=== PATIENT | male | born 1990 | race Caucasian/White ===

== ENCOUNTER 2019-07-17 13:36 | Observation (INO) | payer OTHER ==
[2019-07-17 13:44] VITALS: BMI 21.7
--- NOTE | 2019-07-17 14:21 | PDOC ---
History of Present Illness - General Chief Complaint: Head/Neck problem Stated Complaint: VOMITING AND LT FACIAL NUMBNESS Time Seen by Provider: 07/17/19 13:53 - History of Present Illness Initial Comments: 07/17/19 14:29 Pt is a 28 y/o M with a PMH of seizure d/o as a child (last known seizure 9 years old) who presents to our Emergency Department due to 3-4 days of left sided facial pain/numbness as well as generalized weakness. Pt states that he has been suffering however from a left occipital headache for 2 weeks duration. Pt recently visited his Neurologist who recommended an MRI w/ and w/o contrast of his Brain and C-Spine. This was scheduled for July 26 however due to progressively worsening pain, pt came to our E.D. Endorses decreased appetite and poor oral intake as well. Also endorsing photophobia. Pt states he was recently at [facility] however signed out AMA and does not believe any tests were ordered. Past History - Past Medical History Allergies/Adverse Reactions: Allergies Allergy/AdvReac Type Severity Reaction Status Date / Time Penicillins Allergy Verified 07/17/19 13:38 CVA: No COPD: No - Psycho Social/Smoking Cessation Hx Smoking History: Current every day smoker Number of Cigarettes Smoked Daily: 2 Information on smoking cessation initiated: Yes Hx Alcohol Use: No Drug/Substance Use Hx: No Review of Systems - Review of Systems Able to Perform ROS?: Yes Constitutional: Yes: Chills, Loss of Appetite. No: Fever Respiratory: No: Cough, Shortness of Breath Cardiac (ROS): No: Chest Pain, Palpitations ABD/GI: Yes: Poor Appetite, Poor Fluid Intake. No: Abdominal Distended Musculoskeletal: Yes: Muscle Pain Neurological: Yes: Headache, Paresthesia, Weakness *Physical Exam - Vital Signs Last Vital Signs Temp Pulse Resp BP Pulse Ox 98.1 F 111 H 20 122/79 95 07/17/19 13:39 07/17/19 13:39 07/17/19 13:39 07/17/19 13:39 07/17/19 13:39 - Physical Exam Comments: 07/17/19 22:25 AAOx3 Moderate distress EOMI Sclera Clear, PERRL RRR S1S2 CTA b/l CN 2-12 intact. Motor strength 5/5 RUE, 4-5/5 LUE, 5/5 b/l lower extremities. SILT throughout. - Addis/yuliana. General Appearance: Yes: Mild Distress HEENT: positive: EOMI, Normal ENT Inspection, Symmetrical, Photophobia. negative: Pale Conjunctivae, Scleral Icterus (L), Tonsillar Exudate, Tonsillar Erythema, Nasal Congestion Neck: positive: Supple, Other. negative: Rigidity ED Treatment Course - LABORATORY CBC & Chemistry Diagram: 07/17/19 15:18 07/17/19 15:18 Medical Decision Making - Medical Decision Making 07/17/19 14:21 DDx includes but not limited to meningitis, migraine headache, Multiple sclerosis, cervical radiculopathy, trigeminal neuralgia, and Zoster virus. Will order CBC w/ diff, CMP, and Head CT. 07/17/19 14:24 Placed call out to patient's Neurologist-Dr Freeman 07/17/19 16:27 Covering Neurologist, Dr Godinez recommends MRI w and w/o contrast. Pt sent for Head CT in light of symptoms and inability to have MRI at this time 07/17/19 16:[address] negative for any acute intracranial pathology. MRI Brain w/ and w/o contrast ordered as well as C-Spine. 07/17/19 17:[address] call out to on-call Neurologist Dr Desir to assess whether to admit as MRI 07/17/19 17:31 Spoke with MRI national recruiter- Gonzalez. States unless MRI is STAT order (Stroke, Cord Compression etc.), does not qualify for STAT MRI. Awaiting Call back from Dr Desir. Plan to admit to Hospitalist service for MRI tomorrow and further neurological workup. 07/17/19 17:[address] Desir. Agree with decision to admit in light of patient's symptoms. Microblog placed out to Hospitalist for admission. Discharge - Discharge Information Problems reviewed: Yes Clinical Impression/Diagnosis: Facial paresthesia Condition: Improved - Admission Yes - Follow up/Referral - Patient Discharge Instructions - Post Discharge Activity
[2019-07-17] MEDS ORDERED: ACETAMINOPHEN 1000 MG/100 ML VIAL (NON FORMULARY) IVPB ONE (14:22)
--- NOTE | 2019-07-17 15:00 | PDOC ---
Attending Attestation - Resident Resident Name: Paul Vernon - ED Attending Attestation I have performed the following: I have examined & evaluated the patient, The case was reviewed & discussed with the resident, I agree w/resident's findings & plan, Exceptions are as noted - HPI HPI: 07/17/19 14:57 20-year-old male history of seizure disorder here today complaining of 2 weeks of a left occipital headache in addition having left-sided facial pain numbness and tingling. He has been describing some paresthesia or burning-like sensation over the lateral aspect of his left side posterior neck. Approximately 2 to 3 days ago started noticing some photophobia associated with his headache denies any fevers or chills no history of recent trauma he did see a neurologist for his symptoms who scheduled him for an outpatient MRI patient is unable to schedule that test until first week in July. Was seen at [facility] emergency room however states he left AMA no testing was ordered at that time per his recollection. No nausea no vomiting weakness is described as generalized no family history of MS how there is a family history of migraines in his mother. Patient states he has no history of previous similar headaches - Physicial Exam PE: 07/17/19 14:59 Awake alert no acute distress lungs are clear bilaterally heart is regular without murmurs rubs or gallops abdomen is soft nontender extremities are warm well perfused strength is 5 out of 5 right upper and right lower extremity. Mild weakness 4+ out of 5 on the left upper and lower extremity sensation is intact throughout. Cranial nerves II through XII are intact extraocular motions are intact. Negative Kernig's or Brudzinski sign skin is warm and dry no rash - Medical Decision Making 07/17/19 14:59 28-year-old male no past medical history here with 2 weeks of left-sided headache with associated paresthesia generalized weakness. Differential includes MS, mass lesion, atypical migraine lateral abnormality. Plan will treat with migraine medications such as Reglan Toradol IV fluids and some basic labs. CT head was ordered due to the asymmetry on his exam patient will ultimately still require an MRI of the neck and head
[2019-07-17] MEDS ORDERED: ACETAMINOPHEN INJECTION 100 ML IVPB ONE (15:22)
[2019-07-17] MEDS ORDERED: METOCLOPRAMIDE HCL INJECTION 10 MG/2 ML VIAL IVPUSH ONE (15:23)
[2019-07-17] MEDS ORDERED: FAMOTIDINE 20 MG/50 ML IVPB 20 MG/50 ML MG IVPB ONE ×2 (15:23→15:29)
[2019-07-17] MEDS ORDERED: MAG HYDROX/AL HYDROX/SIMETH 30 ML UNIT-DOSE CUP ONE (15:24)
[2019-07-17] MEDS ORDERED: MAG HYDROX/AL HYDROX/SIMETH 30 ML UNIT-DOSE CUP PO ONE (15:24)
[2019-07-17] MEDS ORDERED: SODIUM CHLORIDE 0.9% 1000 ML INFUS.BAG IV ONE (15:30)
[2019-07-17] MEDS ORDERED: METOCLOPRAMIDE HCL INJECTION 10 MG/2 ML VIAL ONE (15:30)
[2019-07-17 15:42] LABS: BASO % 0.3 % (0-2.0); EOS % 0.2 % (0-4.5); HEMATOCRIT 51.1 % (35.4-49); HEMOGLOBIN 17.2 GM/dL (11.7-16.9); LYMPH % 20.6 % (8-40); MCH 31.5 pg (25.7-33.7); MCHC 33.7 g/dl (32.0-35.9); MEAN CELL VOLUME 93.5 fl (80-96); MEAN PLT VOLUME 7.8 fl (7.5-11.1); MONO % 11.9 % (3.8-10.2); PLATELET COUNT 228 K/MM3 (134-434); RBC 5.47 M/mm3 (4.00-5.60); RDW 12.7 % (11.9-15.9); WHITE BLOOD COUNT 9.9 K/mm3 (4.0-10.0)
[2019-07-17 16:21] LABS: ALBUMIN 4.5 g/dl (3.4-5.0); BILIRUBIN,TOTAL 0.9 mg/dL (0.2-1); CALCIUM 9.6 mg/dL (8.5-10.1); CREATININE 1.3 mg/dL (0.55-1.3); POTASSIUM 3.6 mmol/L (3.5-5.1); TOT PROT 8.1 g/dl (6.4-8.2)
[2019-07-17] MEDS ORDERED: KETOROLAC TROMETHAMINE 30 MG/1 ML VIAL IVPUSH ONE (17:30)
[2019-07-17] MEDS ORDERED: KETOROLAC TROMETHAMINE 30 MG/1 ML VIAL ONE (17:46)
[2019-07-17] MEDS ORDERED: KETOROLAC TROMETHAMINE 15 MG/ML VIAL IVPUSH PRN (18:04)
[2019-07-17] MEDS ORDERED: ONDANSETRON 4 MG/2 ML VIAL IVPUSH PRN (18:04)
[2019-07-17] MEDS ORDERED: ACETAMINOPHEN 325 MG TABLET (FP) PO PRN (18:04)
--- NOTE | 2019-07-17 18:17 | HP ---
CHIEF COMPLAINT: PCP:Mayuri HISTORY OF PRESENT ILLNESS: Pt is a 28 y/o M with a PMH of seizure d/o as a child (last known seizure 9 years old) presented to ER with c/o 3-4 days of left sided facial pain/ numbness as well as generalized weakness. Pt states that he has been suffering however from a left occipital headache for 2 weeks duration. Pt recently visited his Neurologist who recommended an MRI w/ and w/o contrast of his Brain and C-Spine which is scheduled for July 26 however due to progressively worsening pain, pt came to our E.D. pt reports of being nauseous yesterday and vomited x1. no vomiting today, mother at bedside, brought [employer], which patient just ate, denies abdominal pain, fevers, diarrhea. pt also c/o photophobia. pt was recently at [facility] however signed out AMA and does not believe any tests were ordered. pt received toradol in ED, currently rates headache 01/28, ER course was notable for: (1)CT head no acute findings (2)EKG NSR (3) Recent Travel: PAST MEDICAL HISTORY: febrile seizures PAST SURGICAL HISTORY:none Social History: Smoking:current smoker, 2-3 cigarettes/day Alcohol:denies Drugs: denies Allergies Penicillins Allergy (Verified 07/17/19 13:38) HOME MEDICATIONS: REVIEW OF SYSTEMS CONSTITUTIONAL: Absent: fever, chills, diaphoresis, generalized weakness, malaise, loss of appetite, weight change HEENT: Absent: rhinorrhea, nasal congestion, throat pain, throat swelling, difficulty swallowing, mouth swelling, ear pain, eye pain, visual changes CARDIOVASCULAR: Absent: chest pain, syncope, palpitations, irregular heart rate, lightheadedness , peripheral edema RESPIRATORY: Absent: cough, shortness of breath, dyspnea with exertion, orthopnea, wheezing, stridor, hemoptysis GASTROINTESTINAL:+Nausea, vomiting, Absent: abdominal pain, abdominal distension, diarrhea, constipation, melena, hematochezia GENITOURINARY: Absent: dysuria, frequency, urgency, hesitancy, hematuria, flank pain, genital pain MUSCULOSKELETAL: Absent: myalgia, arthralgia, joint swelling, back pain, neck pain SKIN: Absent: rash, itching, pallor HEMATOLOGIC/IMMUNOLOGIC: Absent: easy bleeding, easy bruising, lymphadenopathy, frequent infections ENDOCRINE: Absent: unexplained weight gain, unexplained weight loss, heat intolerance, cold intolerance NEUROLOGIC: left sided occipital headache, facial, numbness, +photophobia Absent: headache, focal weakness or paresthesias, dizziness, unsteady gait, seizure, mental status changes, bladder or bowel incontinence PSYCHIATRIC: Absent: anxiety, depression, suicidal or homicidal ideation, hallucinations. PHYSICAL EXAMINATION Vital Signs - 24 hr 07/17/19 13:39 Temperature 98.1 F Pulse Rate 111 H Respiratory 20 Rate Blood Pressure 122/79 O2 Sat by Pulse 95 Oximetry (%) GENERAL: Awake, alert, and fully oriented, in no acute distress. HEAD: Normal with no signs of trauma. EYES: Pupils equal, round and reactive to light, extraocular movements intact, sclera anicteric, conjunctiva clear. No lid lag. EARS, NOSE, THROAT: Ears normal, nares patent, oropharynx clear without exudates. Moist mucous membranes. NECK: Normal range of motion, supple without lymphadenopathy, JVD, or masses. LUNGS: Breath sounds equal, clear to auscultation bilaterally. No wheezes, and no crackles. No accessory muscle use. HEART: Regular rate and rhythm, normal S1 and S2 without murmur, rub or gallop. ABDOMEN: Soft, nontender, not distended, normoactive bowel sounds, no guarding, no rebound, no masses. No hepatomegaly or splenomegaly. MUSCULOSKELETAL: Normal range of motion at all joints. No bony deformities or tenderness. No CVA tenderness. UPPER EXTREMITIES: 2+ pulses, warm, well-perfused. No cyanosis. No clubbing. No peripheral edema. LOWER EXTREMITIES: 2+ pulses, warm, well-perfused. No calf tenderness. No peripheral edema. NEUROLOGICAL: Cranial nerves II-XII intact. Normal speech. Normal gait. PSYCHIATRIC: Cooperative. Good eye contact. Appropriate mood and affect. SKIN: Warm, dry, normal turgor, no rashes or lesions noted, normal capillary refill. Laboratory Results - last 24 hr 07/17/19 07/17/19 15:18 15:18 WBC 9.9 RBC 5.47 Hgb 17.2 H Hct 51.1 H MCV 93.5 MCH 31.5 MCHC 33.7 RDW 12.7 Plt Count 228 MPV 7.8 Absolute Neuts (auto) 6.6 Neutrophils % 67.0 Lymphocytes % 20.6 Monocytes % 11.9 H Eosinophils % 0.2 Basophils % 0.3 Nucleated RBC % 0 Sodium 136 Potassium 3.6 Chloride 93 L Carbon Dioxide 36 H Anion Gap 7 L BUN 22.0 H Creatinine 1.3 Est GFR (CKD-EPI)AfAm 86.06 Est GFR (CKD-EPI)NonAf 74.25 Random Glucose 97 Calcium 9.6 Total Bilirubin 0.9 AST 23 ALT 31 Alkaline Phosphatase 70 Total Protein 8.1 Albumin 4.5 ASSESSMENT/PLAN: Diogo Wu is a 28 yr old M, hx of febrile seizures as a child, no other significant medical condition admitted under observation for Admitting Diagnosis Left sided facial numbness/weakness, headache A/P: #Left sided facial numbness/weakness- r/o TIA vs Migraines - tele obs x 24 hrs -Neuro paged in ED- MRI brain w/contrast, MRI C-Spine in AM -will check lipid panel in AM -pain mgt, antiemetics -CT head unremarkable -EKG NSR FEN: Fluids- encourage hydration Electrolytes- replete PRN Nutrition- regular diet as tolerated DVT prophylaxis-pt is low risk, encourage ambulation Full Code Visit type - Emergency Visit Emergency Visit: Yes ED Registration Date: 07/17/19 Care time: The patient presented to the Emergency Department on the above date and was hospitalized for further evaluation of their emergent condition. - New Patient This patient is new to me today: Yes Date on this admission: 07/17/19 - Critical Care Critical Care patient: No
[2019-07-18 06:51] LABS: HEMATOCRIT 42.6 % (35.4-49); HEMOGLOBIN 14.3 GM/dL (11.7-16.9); MCH 31.7 pg (25.7-33.7); MCHC 33.7 g/dl (32.0-35.9); MEAN CELL VOLUME 93.9 fl (80-96); MEAN PLT VOLUME 8.1 fl (7.5-11.1); PLATELET COUNT 180 K/MM3 (134-434); RBC 4.53 M/mm3 (4.00-5.60); RDW 12.8 % (11.9-15.9); WHITE BLOOD COUNT 8.3 K/mm3 (4.0-10.0)
[2019-07-18 07:23] LABS: ALBUMIN 3.5 g/dl (3.4-5.0); BILIRUBIN,TOTAL 0.8 mg/dL (0.2-1); BLOOD UREA NITROGEN 20.9 mg/dL (7-18); CALCIUM 8.3 mg/dL (8.5-10.1); CREATININE 1.3 mg/dL (0.55-1.3); MAGNESIUM 2.2 mg/dL (1.8-2.4); POTASSIUM 3.4 mmol/L (3.5-5.1); TOT PROT 6.4 g/dl (6.4-8.2)
--- NOTE | 2019-07-18 08:37 | PN ---
Progress Note, Physician History of Present Illness: Pt is a 28 y/o M with a PMH of seizure d/o as a child (last known seizure 9 years old) presented to ER with c/o 3-4 days of left sided facial pain/ numbness as well as generalized weakness. Pt states that he has been suffering however from a left occipital headache for 2 weeks duration. Pt recently visited his Neurologist who recommended an MRI w/ and w/o contrast of his Brain and C-Spine which is scheduled for July 26 however due to progressively worsening pain, pt came to our E.D. pt reports of being nauseous yesterday and vomited x1. no vomiting today, mother at bedside, brought [employer], which patient just ate, denies abdominal pain, fevers, diarrhea. pt also c/o photophobia. pt was recently at [facility] however signed out AMA and does not believe any tests were ordered. pt received toradol in ED, currently rates headache 01/28, - Current Medication List Current Medications: Active Medications Acetaminophen (Tylenol -) 650 mg PO Q4H PRN PRN Reason: PAIN LEVEL 1-5 Ketorolac Tromethamine (Toradol Injection -) 15 mg IVPUSH Q6H PRN PRN Reason: PAIN LEVEL 6-10 Stop: 07/22/19 18:03 Ondansetron HCl (Zofran Injection) 4 mg IVPUSH Q6H PRN PRN Reason: NAUSEA - Objective Vital Signs: Vital Signs Temperature 97.5 F L 07/18/19 06:43 Pulse Rate 84 07/18/19 06:43 Respiratory Rate 0 L 07/18/19 06:43 Blood Pressure 135/81 07/18/19 06:43 O2 Sat by Pulse Oximetry (%) 100 07/17/19 21:00 Labs: CBC, BMP 07/18/19 06:13 07/18/19 06:13 Problem List - Problems (1) Seizure Code(s): R56.9 - UNSPECIFIED CONVULSIONS (2) Prophylactic measure Code(s): Z29.9 - ENCOUNTER FOR PROPHYLACTIC MEASURES, UNSPECIFIED (3) Left facial numbness Code(s): R20.0 - ANESTHESIA OF SKIN (4) Occipital headache Code(s): R51 - HEADACHE
[2019-07-18] MEDS ORDERED: POTASSIUM CHLORIDE TABS 20 MEQ TABLET.ER (FP) PO ONE (09:00)
--- NOTE | 2019-07-18 09:32 | CONSULT ---
Consult - text type - Consultation Consultation Note: Neurology CHIEF COMPLAINT: PCP:Mayuri HISTORY OF PRESENT ILLNESS: 28 y/o M with a PMH of seizure d/o as a child (last known seizure 9 years old) presented to ER with c/o 3-4 days of left sided facial pain/numbness as well as generalized weakness. Pt stated that he has been suffering however from a left occipital headache for 2 weeks duration. Pt recently visited his Neurologist who recommended an MRI w/ and w/o contrast of his Brain and C-Spine which is scheduled for July 26 however due to progressively worsening pain , pt came to E.D. and reported nauseousness and vomited x1. No abdominal pain, fevers, diarrhea. pt also c/o photophobia. pt was recently at [facility] however signed out AMA and does not believe any tests were ordered. CT head completed and no acute changes. ER resident concerned for L sided weakness though and therefore MRI brain and C spine ordered. Patient reports feeling better this AM and awaiting imaging. PAST MEDICAL HISTORY: febrile seizures PAST SURGICAL HISTORY:none Social History: Smoking:current smoker, 2-3 cigarettes/day Alcohol:denies Drugs: denies Allergies Penicillins Allergy (Verified 07/17/19 13:38) HOME MEDICATIONS: REVIEW OF SYSTEMS CONSTITUTIONAL: Absent: fever, chills, diaphoresis, generalized weakness, malaise, loss of appetite, weight change HEENT: Absent: rhinorrhea, nasal congestion, throat pain, throat swelling, difficulty swallowing, mouth swelling, ear pain, eye pain, visual changes CARDIOVASCULAR: Absent: chest pain, syncope, palpitations, irregular heart rate, lightheadedness , peripheral edema RESPIRATORY: Absent: cough, shortness of breath, dyspnea with exertion, orthopnea, wheezing, stridor, hemoptysis GASTROINTESTINAL:+Nausea, vomiting, Absent: abdominal pain, abdominal distension, diarrhea, constipation, melena, hematochezia GENITOURINARY: Absent: dysuria, frequency, urgency, hesitancy, hematuria, flank pain, genital pain MUSCULOSKELETAL: Absent: myalgia, arthralgia, joint swelling, back pain, neck pain SKIN: Absent: rash, itching, pallor HEMATOLOGIC/IMMUNOLOGIC: Absent: easy bleeding, easy bruising, lymphadenopathy, frequent infections ENDOCRINE: Absent: unexplained weight gain, unexplained weight loss, heat intolerance, cold intolerance NEUROLOGIC: left sided occipital headache, facial, numbness, +photophobia Absent: headache, focal weakness or paresthesias, dizziness, unsteady gait, seizure, mental status changes, bladder or bowel incontinence PSYCHIATRIC: Absent: anxiety, depression, suicidal or homicidal ideation, hallucinations. PHYSICAL EXAMINATION Vital Signs Period Temp Pulse Resp BP Sys/Renee Pulse Ox Last 24 Hr 97.5 F-98.4 F 67-111 0-20 97-135/52-81 95-100 GENERAL: Awake, alert, and fully oriented, in no acute distress. HEAD: Normal with no signs of trauma. EYES: Pupils equal, round and reactive to light, extraocular movements intact, sclera anicteric, conjunctiva clear. No lid lag. EARS, NOSE, THROAT: Ears normal, nares patent, oropharynx clear without exudates. Moist mucous membranes. NECK: Normal range of motion, supple without lymphadenopathy, JVD, or masses. LUNGS: Breath sounds equal, clear to auscultation bilaterally. No wheezes, and no crackles. No accessory muscle use. HEART: Regular rate and rhythm, normal S1 and S2 without murmur, rub or gallop. ABDOMEN: Soft, nontender, not distended, normoactive bowel sounds, no guarding, no rebound, no masses. No hepatomegaly or splenomegaly. MUSCULOSKELETAL: Normal range of motion at all joints. No bony deformities or tenderness. No CVA tenderness. UPPER EXTREMITIES: 2+ pulses, warm, well-perfused. No cyanosis. No clubbing. No peripheral edema. LOWER EXTREMITIES: 2+ pulses, warm, well-perfused. No calf tenderness. No peripheral edema. NEUROLOGICAL: Cranial nerves II-XII intact. Normal speech. Normal gait. PSYCHIATRIC: Cooperative. Good eye contact. Appropriate mood and affect. SKIN: Warm, dry, normal turgor, no rashes or lesions noted, normal capillary refill. Laboratory Results - last 24 hr 07/17/19 07/17/19 15:18 15:18 WBC 9.9 RBC 5.47 Hgb 17.2 H Hct 51.1 H MCV 93.5 MCH 31.5 MCHC 33.7 RDW 12.7 Plt Count 228 MPV 7.8 Absolute Neuts (auto) 6.6 Neutrophils % 67.0 Lymphocytes % 20.6 Monocytes % 11.9 H Eosinophils % 0.2 Basophils % 0.3 Nucleated RBC % 0 Sodium 136 Potassium 3.6 Chloride 93 L Carbon Dioxide 36 H Anion Gap 7 L BUN 22.0 H Creatinine 1.3 Est GFR (CKD-EPI)AfAm 86.06 Est GFR (CKD-EPI)NonAf 74.25 Random Glucose 97 Calcium 9.6 Total Bilirubin 0.9 AST 23 ALT 31 Alkaline Phosphatase 70 Total Protein 8.1 Albumin 4.5 ASSESSMENT/PLAN: 28 y/o M with a PMH of seizure d/o as a child (last known seizure 9 years old) presented to ER with c/o 3-4 days of left sided facial pain/numbness as well as generalized weakness. Pt stated that he has been suffering however from a left occipital headache for 2 weeks duration. Pt recently visited his Neurologist who recommended an MRI w/ and w/o contrast of his Brain and C-Spine which is scheduled for July 26 however due to progressively worsening pain , pt came to E.D. and reported nauseousness and vomited x1. No abdominal pain, fevers, diarrhea. pt also c/o photophobia. pt was recently at [facility] however signed out AMA and does not believe any tests were ordered. CT head completed and no acute changes. ER resident concerned for L sided weakness though and therefore MRI brain and C spine ordered. Patient reports feeling better this AM and awaiting imaging. Once completed will have better sense of underlying etiology. For now, continue medical optimization. Fluids, increased PO intake as able. DVT ppx.
--- NOTE | 2019-07-18 15:05 | DS ---
Physical Exam: SUBJECTIVE: Patient seen and examined Pt is a 28 y/o M with a PMH of seizure d/o as a child (last known seizure 9 years old) presented to ER with c/o 3-4 days of left sided facial pain/ numbness as well as generalized weakness. Pt states that he has been suffering however from a left occipital headache for 2 weeks duration. Pt recently visited his Neurologist who recommended an MRI w/ and w/o contrast of his Brain and C-Spine which is scheduled for July 26 however due to progressively worsening pain, pt came to our E.D. pt reports of being nauseous yesterday and vomited x1. no vomiting today, mother at bedside, brought [employer], which patient just ate, denies abdominal pain, fevers, diarrhea. pt also c/o photophobia. pt was recently at [facility] however signed out AMA and does not believe any tests were ordered. pt received toradol in ED, currently rates headache 01/28, OBJECTIVE: Vital Signs Period Temp Pulse Resp BP Sys/Renee Pulse Ox Last 24 Hr 97.5 F-98.5 F 60-98 0-20 97-145/52-81 100-100 PHYSICAL EXAM GENERAL: The patient is awake, alert, and fully oriented, in no acute distress. HEAD: Normal with no signs of trauma. EYES: PERRL, extraocular movements intact, sclera anicteric, conjunctiva clear. ENT: Ears normal, nares patent, oropharynx clear without exudates, moist mucous membranes. NECK: Trachea midline, full range of motion, supple. LUNGS: Breath sounds equal, clear to auscultation bilaterally, no wheezes, no crackles, no accessory muscle use. HEART: Regular rate and rhythm, S1, S2 without murmur, rub or gallop. ABDOMEN: Soft, nontender, nondistended, normoactive bowel sounds, no guarding, no rebound, no hepatosplenomegaly, no masses. EXTREMITIES: 2+ pulses, warm, well-perfused, no edema. NEUROLOGICAL: Cranial nerves II through XII grossly intact. Normal speech, gait not observed. PSYCH: Normal mood, normal affect. SKIN: Warm, dry, normal turgor, no rashes or lesions noted. LABS Laboratory Results - last 24 hr 07/17/19 07/17/19 07/18/19 15:18 15:18 06:13 WBC 9.9 8.3 RBC 5.47 4.53 Hgb 17.2 H 14.3 Hct 51.1 H 42.6 D MCV 93.5 93.9 MCH 31.5 31.7 MCHC 33.7 33.7 RDW 12.7 12.8 Plt Count 228 180 D MPV 7.8 8.1 Absolute Neuts (auto) 6.6 Neutrophils % 67.0 Lymphocytes % 20.6 Monocytes % 11.9 H Eosinophils % 0.2 Basophils % 0.3 Nucleated RBC % 0 Sodium 136 Potassium 3.6 Chloride 93 L Carbon Dioxide 36 H Anion Gap 7 L BUN 22.0 H Creatinine 1.3 Est GFR (CKD-EPI)AfAm 86.06 Est GFR (CKD-EPI)NonAf 74.25 Random Glucose 97 Calcium 9.6 Magnesium Total Bilirubin 0.9 AST 23 ALT 31 Alkaline Phosphatase 70 Total Protein 8.1 Albumin 4.5 07/18/19 06:13 WBC RBC Hgb Hct MCV MCH MCHC RDW Plt Count MPV Absolute Neuts (auto) Neutrophils % Lymphocytes % Monocytes % Eosinophils % Basophils % Nucleated RBC % Sodium 136 Potassium 3.4 L Chloride 98 Carbon Dioxide 32 Anion Gap 6 L BUN 20.9 H Creatinine 1.3 Est GFR (CKD-EPI)AfAm 86.06 Est GFR (CKD-EPI)NonAf 74.25 Random Glucose 123 H Calcium 8.3 L Magnesium 2.2 Total Bilirubin 0.8 AST 17 ALT 24 Alkaline Phosphatase 55 Total Protein 6.4 Albumin 3.5 HOSPITAL COURSE: Date of Admission:07/17/19 Date of Discharge: 07/18/19 Minutes to complete discharge: 45 Discharge Summary Problems reviewed: Yes Reason For Visit: PARESTHESIA AND PAIN OF LEFT EXTREMITY, FACIAL Current Active Problems Facial paresthesia (Acute) Left facial numbness (Acute) Occipital headache (Acute) Prophylactic measure (Acute) Seizure (Acute) Condition: Improved - Instructions Referrals: Sinai Messina MD [Primary Care Provider] - Problem List - Problems (1) Seizure Code(s): R56.9 - UNSPECIFIED CONVULSIONS (2) Prophylactic measure Code(s): Z29.9 - ENCOUNTER FOR PROPHYLACTIC MEASURES, UNSPECIFIED (3) Left facial numbness Code(s): R20.0 - ANESTHESIA OF SKIN (4) Occipital headache Code(s): R51 - HEADACHE
[2019-07-18 15:59] VITALS: BP 147/91; PULSE 67; TEMP 98.4
== END 2019-07-18 15:58 | disposition home or self-care (01) ==
LOC: JER 13:36 → JERBED 17:47 → J8W 20:57
PROVIDERS: ADMIT Internal Medicine; ATTEND Nurse Practitioner Acute Care
PROC: 3E033NZ Introduction of Analgesics, Hypnotics, Sedatives into Peripheral Vein, Percutaneous Approach (ICD-10-PCS; principal; 2019-07-17)
PROC: 3E0333Z Introduction of Anti-inflammatory into Peripheral Vein, Percutaneous Approach (ICD-10-PCS; 2019-07-17)
PROC: 3E0337Z Introduction of Electrolytic and Water Balance Substance into Peripheral Vein, Percutaneous Approach (ICD-10-PCS; 2019-07-17)
PROC: 3E033GC Introduction of Other Therapeutic Substance into Peripheral Vein, Percutaneous Approach (ICD-10-PCS; 2019-07-17)
DX: R20.2 Paresthesia of skin (principal); R20.0 Anesthesia of skin; R51 Headache; R53.1 Weakness; F17.210 Nicotine dependence, cigarettes, uncomplicated; Z88.0 Allergy status to penicillin; Z86.69 Personal history of other diseases of the nervous system and sense organs; Z29.8 Encounter for other specified prophylactic measures
CPT/HCPCS: 36415; 70450-TC; 70553-TC; 80053; 80061; 83721; 83735; 85025; 85027; 96365; 96375; 99284-25; A9579; C1887; G0378; J0131; J7030

== ENCOUNTER 2019-07-20 13:10 | Inpatient (IN) | payer OTHER ==
[2019-07-20 13:18] VITALS: BMI 21.9
[2019-07-20] MEDS ORDERED: SODIUM CHLORIDE 1,000 ML IV STA ×2 (14:01→15:09)
[2019-07-20] MEDS ORDERED: ONDANSETRON 4 MG/2 ML VIAL IVPUSH ONE (14:01)
[2019-07-20] MEDS ORDERED: FAMOTIDINE 20 MG/50 ML IVPB 20 MG/50 ML MG IVPB ONE ×2 (14:01→14:07)
[2019-07-20] MEDS ORDERED: ONDANSETRON 4 MG/2 ML VIAL ONE (14:07)
[2019-07-20 14:17] LABS: BASO % 0.8 % (0-2.0); EOS % 0.2 % (0-4.5); HEMOGLOBIN 16.8 GM/dL (11.7-16.9); LYMPH % 27.7 % (8-40); MCH 31.5 pg (25.7-33.7); MCHC 33.6 g/dl (32.0-35.9); MEAN CELL VOLUME 93.8 fl (80-96); MEAN PLT VOLUME 7.5 fl (7.5-11.1); MONO % 11.9 % (3.8-10.2); NEUT % 59.4 % (42.8-82.8); PLATELET COUNT 194 K/MM3 (134-434); RBC 5.33 M/mm3 (4.00-5.60); RDW 12.2 % (11.9-15.9); WHITE BLOOD COUNT 6.6 K/mm3 (4.0-10.0)
[2019-07-20 14:18] LABS: PH,URINE 5.5 (5.0-8.0); URINE APPEARANCE CLEAR; URINE BILIRUBIN NEGATIVE (NEGATIVE); URINE COLOR YELLOW; URINE GLUCOSE (UA) NEGATIVE (NEGATIVE); URINE KETONE TRACE (NEGATIVE); URINE LEUK ESTERASE NEGATIVE (NEGATIVE); URINE NITRITE NEGATIVE (NEGATIVE); URINE PROTEIN TRACE (NEGATIVE)
[2019-07-20 14:45] LABS: BILIRUBIN,TOTAL 0.9 mg/dL (0.2-1); BLOOD UREA NITROGEN 17.6 mg/dL (7-18); CALCIUM 9.3 mg/dL (8.5-10.1); CREATININE 1.2 mg/dL (0.55-1.3); POTASSIUM 4.1 mmol/L (3.5-5.1); TOT PROT 7.6 g/dl (6.4-8.2)
[2019-07-20 14:54] LABS: MAGNESIUM 2.2 mg/dL (1.8-2.4); PHOSPHOROUS 3.2 mg/dL (2.5-4.9)
--- NOTE | 2019-07-20 15:31 | PDOC ---
History of Present Illness - General Chief Complaint: Head/Neck problem Stated Complaint: NUMBNESS/WEAKNESS/VOMITING Time Seen by Provider: 07/20/19 13:23 History Source: Patient Exam Limitations: No Limitations - History of Present Illness Initial Comments: 07/20/19 15:26 28 yo m w/ a h/o seizures as a child comes in c/o intractable vomiting and epigastric abdominal pain for the past 3-4 days. Pain does not radiate to the back. no diarrhea. no urinary symptoms, no CP/SOB. No fever/chills. He was admitted in the hospital 4 days ago for numbness/tingling to the left side of the face, had a negative MRI head but has not gotten a chance to follow up yet. He was having vomiting in the hospital but tolerated PO his last day which is why he got discharged. When he got home, he ate a king sandwich and everything got worse. No known sick contacts, no recent travel. He took tylenol at home which did not help with pain Past History - Past Medical History Allergies/Adverse Reactions: Allergies Allergy/AdvReac Type Severity Reaction Status Date / Time Penicillins Allergy Verified 07/20/19 13:18 Home Medications: Ambulatory Orders NK [No Known Home Medication] 07/20/19 Anemia: No Asthma: No Cancer: No Cardiac Disorders: No CVA: No COPD: No CHF: No Dementia: No Diabetes: No GI Disorders: No Disorders: No HTN: No Hypercholesterolemia: No Liver Disease: No Seizures: No Thyroid Disease: No - Surgical History Abdominal Surgery: No Appendectomy: No Cardiac Surgery: No Cholecystectomy: No Lung Surgery: No Neurologic Surgery: No Orthopedic Surgery: No - Psycho Social/Smoking Cessation Hx Smoking History: Never smoked Have you smoked in the past 12 months: No Number of Cigarettes Smoked Daily: 2 Information on smoking cessation initiated: No 'Breaking Loose' booklet given: 06/23/18 Hx Alcohol Use: No Drug/Substance Use Hx: No Substance Use Type: None Review of Systems - Review of Systems Able to Perform ROS?: Yes Constitutional: Yes: Malaise. No: Chills, Fever, Night Sweats HEENTM: No: Eye Pain, Recent change in vision, Throat Pain Respiratory: No: Cough, Shortness of Breath Cardiac (ROS): No: Chest Pain, Palpitations, Chest Tightness ABD/GI: Yes: Nausea, Vomiting, Abdominal cramping. No: Diarrhea : No: Dysuria, Hematuria Musculoskeletal: No: Back Pain Integumentary: No: Rash Neurological: No: Dizziness Psychiatric: No: Change in Appetite Endocrine: No: Unexplained Weight Loss *Physical Exam - Vital Signs Last Vital Signs Temp Pulse Resp BP Pulse Ox 98.4 F 70 17 110/70 100 07/20/19 13:15 07/20/19 13:15 07/20/19 13:15 07/20/19 13:15 07/20/19 13:20 - Physical Exam General Appearance: Yes: Nourished. No: Apparent Distress HEENT: positive: DAE, Normal ENT Inspection, Normal Voice. negative: Pale Conjunctivae, Scleral Icterus (R), Scleral Icterus (L) Neck: positive: Supple. negative: Decreased range of motion, Tender midline Respiratory/Chest: positive: Lungs Clear, Normal Breath Sounds. negative: Respiratory Distress, Accessory Muscle Use Cardiovascular: positive: Regular Rhythm, Regular Rate Comments:: 07/20/19 15:36 Neuro exam : A+Ox3 (person, place, time), normal sensorium. Visual kowalski: full to confrontation. Pupils: equal, round, and reactive to light. EOM: intact and smooth pursuit. No nystagmus. Sensation: V1, V2, and V3 subjective sensory disturbances on the left side. Facial strength: muscles of mastication, facial expression, shoulder shrug, and head turn normal. Hearing: grossly intact b/l Mouth: tongue protrudes midline and moves Left/Right equal b/l. Uvula rises symmetrically. Motor: UE and LE 5/5 diffusely. Sensation: light touch and pinprick WNL in extremities Cerebellum: [id number] normal without dysmetria or intention tremor. [id number] wnl. No dysdiadodyskinesia. Gait: unassisted, steady, Romberg negative, and heel-walk normal. No atalgia, difficulty in ambulation or ataxia. Gastrointestinal/Abdominal: positive: Normal Bowel Sounds, Tender (epigastric area tenderness. (-)dallas's sign, no lower abdominal tenderness), Soft, Rebound (mild rebound in epigastric area) Musculoskeletal: positive: Normal Inspection. negative: CVA Tenderness, Decreased Range of Motion Extremity: positive: Normal Capillary Refill, Normal Inspection, Normal Range of Motion. negative: Tender, Pedal Edema Integumentary: positive: Normal Color, Dry. negative: Jaundice, Rash Neurologic: positive: Fully Oriented, Alert, Normal Mood/Affect ED Treatment Course - LABORATORY CBC & Chemistry Diagram: 07/20/19 13:55 07/20/19 13:55 - ADDITIONAL ORDERS Additional order review: Laboratory Results 07/20/19 07/20/19 07/20/19 14:00 13:55 13:55 Sodium Potassium Chloride Carbon Dioxide Anion Gap BUN Creatinine Est GFR (CKD-EPI)AfAm Est GFR (CKD-EPI)NonAf Random Glucose Calcium Phosphorus 3.2 Magnesium 2.2 Total Bilirubin AST ALT Alkaline Phosphatase Total Protein Albumin Lipase 1234 H Urine Color Yellow Urine Appearance Clear Urine pH 5.5 Ur Specific [place] 1.030 Urine Protein Trace Urine Glucose (UA) Negative Urine Ketones Trace H Urine Blood Negative Urine Nitrite Negative Urine Bilirubin Negative Urine Urobilinogen 1.0 Ur Leukocyte Esterase Negative 07/20/19 13:55 Sodium 138 Potassium 4.1 Chloride 100 Carbon Dioxide 34 H Anion Gap 4 L BUN 17.6 Creatinine 1.2 Est GFR (CKD-EPI)AfAm 94.80 Est GFR (CKD-EPI)NonAf 81.80 Random Glucose 92 Calcium 9.3 Phosphorus Magnesium Total Bilirubin 0.9 AST 23 ALT 31 Alkaline Phosphatase 63 Total Protein 7.6 Albumin 4.0 Lipase Urine Color Urine Appearance Urine pH Ur Specific [place] Urine Protein Urine Glucose (UA) Urine Ketones Urine Blood Urine Nitrite Urine Bilirubin Urine Urobilinogen Ur Leukocyte Esterase 07/20/19 13:55 RBC 5.33 MCV 93.8 MCHC 33.6 RDW 12.2 MPV 7.5 Neutrophils % 59.4 Lymphocytes % 27.7 D Monocytes % 11.9 H Eosinophils % 0.2 Basophils % 0.8 - Medications Given in the ED: ED Medications Discontinued Medications Generic Name Dose Route Start Last Admin Trade Name Freq PRN Reason Stop Dose Admin Famotidine/Sodium Chloride 20 mg in 50 mls @ 100 mls/hr 07/20/19 14:01 14:12 Pepcid 20 Mg Premixed Ivpb - IVPB 07/20/19 14:30 100 mls/hr ONCE ONE Administration Sodium Chloride 1,000 mls @ 1,000 mls/hr 07/20/19 14:01 07/20/19 14:10 Normal Saline - IV 07/20/19 15:00 1,000 mls/hr ASDIR STA Administration Ondansetron HCl 4 mg 07/20/19 14:01 07/20/19 14:10 Zofran Injection IVPUSH 07/20/19 14:02 4 mg ONCE ONE Administration Medical Decision Making - Medical Decision Making 07/20/19 15:04 28 yo male with epigastric abdominal pain w/ intractable vomiting. Will line and lab, check lipase, UA, give pepcid, zofran, fluids. Facial numbness already worked up, pt has appt with Neuro outpatient 07/20/19 15:35 (+)high lipase, (+)pancreatitis. WIll admit and give IV fluids. Pt knows to be NPO Discharge - Discharge Information Problems reviewed: Yes Clinical Impression/Diagnosis: Pelvic pain - Follow up/Referral - Patient Discharge Instructions - Post Discharge Activity
[2019-07-20] MEDS ORDERED: SODIUM CHLORIDE 0.9% 500 ML INFUS.BAG IV ONE (16:33)
--- NOTE | 2019-07-20 16:43 | HP ---
CHIEF COMPLAINT: Abd pain and vomiting PCP: Dr. Zavala HISTORY OF PRESENT ILLNESS: Mr. Wu is a 28 year old male with PMH of febrile seizures as child who presents with 4 days of vomiting and epigastric abdominal pain. Pain came on suddenly, is sharp, constant, and radiates to the left. He has vomited around 4 times a day. Vomit is NBNB and not associated with food intake. He has been able to tolerate some food. He complains of associated chills but denies any fevers or diarrhea. No urinary symptoms. No sick contacts. No hx of STI. Pt had similar symptoms 5 years ago, which he was admitted for. He does not recall what he was diagnosed with but states that the hospital treated him with fluids and medications and he got better. ER course was notable for: (1) Lipase: 1234 (2) UA: trace ketones, unremarkable (3) Recent Travel: denies PAST MEDICAL HISTORY: Febrile seizures (last seizure age 9) PAST SURGICAL HISTORY: Denies Social History: Smokin cig/day Alcohol: denies Drugs: marijuana daily Allergies Penicillins Allergy (Verified 07/20/19 13:18) HOME MEDICATIONS: Home Medications Medication Instructions Recorded NK [No Known Home Medication] 07/20/19 REVIEW OF SYSTEMS CONSTITUTIONAL: Absent: fever, chills, diaphoresis, generalized weakness, malaise, loss of appetite, weight change HEENT: Absent: rhinorrhea, nasal congestion, throat pain, throat swelling, difficulty swallowing, mouth swelling, ear pain, eye pain, visual changes CARDIOVASCULAR: Absent: chest pain, syncope, palpitations, irregular heart rate, lightheadedness , peripheral edema RESPIRATORY: Absent: cough, shortness of breath, dyspnea with exertion, orthopnea, wheezing, stridor, hemoptysis GASTROINTESTINAL: abdominal pain, nausea, vomiting, Absent: diarrhea, constipation, melena, hematochezia GENITOURINARY: Absent: dysuria, frequency, urgency, hesitancy, hematuria, flank pain, genital pain MUSCULOSKELETAL: Absent: myalgia, arthralgia, joint swelling, back pain, neck pain SKIN: Absent: rash, itching, pallor HEMATOLOGIC/IMMUNOLOGIC: Absent: easy bleeding, easy bruising, lymphadenopathy, frequent infections ENDOCRINE: Absent: unexplained weight gain, unexplained weight loss, heat intolerance, cold intolerance NEUROLOGIC: Absent: headache, focal weakness or paresthesias, dizziness, unsteady gait, seizure, mental status changes, bladder or bowel incontinence PSYCHIATRIC: Absent: anxiety, depression, suicidal or homicidal ideation, hallucinations. PHYSICAL EXAMINATION Vital Signs - 24 hr 07/20/19 07/20/19 13:15 13:20 Temperature 98.3 F Pulse Rate 70 Pulse Rate [ 74 Left] Respiratory 17 Rate Blood Pressure 110/70 Blood Pressure 124/86 [Right Arm] O2 Sat by Pulse 97 100 Oximetry (%) GENERAL: Awake, alert, and fully oriented, in no acute distress. HEAD: Normal with no signs of trauma. EYES: Pupils equal, round and reactive to light, extraocular movements intact, sclera anicteric, conjunctiva clear. No lid lag. EARS, NOSE, THROAT: Ears normal, nares patent, oropharynx clear without exudates. Moist mucous membranes. NECK: Normal range of motion, supple without lymphadenopathy, JVD, or masses. LUNGS: Breath sounds equal, clear to auscultation bilaterally. No wheezes, and no crackles. No accessory muscle use. HEART: Regular rate and rhythm, normal S1 and S2 without murmur, rub or gallop. ABDOMEN: Epigastric tenderness, mild rebound tenderness and guarding. Normoactive bowel sounds. Soft, nondistended. No masses. Negative dallas's sign. L CVA tenderness. MUSCULOSKELETAL: Normal range of motion at all joints. No bony deformities or tenderness. No CVA tenderness. UPPER EXTREMITIES: 2+ pulses, warm, well-perfused. No cyanosis. No clubbing. No peripheral edema. LOWER EXTREMITIES: 2+ pulses, warm, well-perfused. No calf tenderness. No peripheral edema. NEUROLOGICAL: Cranial nerves II-XII intact. Normal speech. Normal gait. PSYCHIATRIC: Cooperative. Good eye contact. Appropriate mood and affect. SKIN: Warm, dry, normal turgor, no rashes or lesions noted, normal capillary refill. Laboratory Results - last 24 hr CBC, BMP 07/20/19 13:55 07/20/19 13:55 ASSESSMENT/PLAN: Mr. Wu is a 28 year old male with PMH of febrile seizures as child who presents with 4 days of vomiting and epigastric abdominal pain. #Cyclical vomiting with epigastric abd pain Likely 2/2 to marijuana use, cannot r/o pancreatitis Pt is afebrile, no leukocytosis. No hx of alcohol use, lipid panel unremarkable - pancreatitis less likely. Lipase: 1234, Tri (on 07/18) Order CTAP F/u Utox Repeat lipase in am Hydrate with IVF, 1L NS x3, maintenance 150ml/hr overnight Morphine 1mg Q6H prn for pain Zofran 4mg Q8H prn for nausea Keep NPO for now #Febrile seizures No seizures since age 9 Not on any home medications #DVT ppx Heparin TID #FEN IV NS @ 150ml/hr NPO #Dispo Monitor on med-surg Visit type - Emergency Visit Emergency Visit: Yes ED Registration Date: 07/20/19 Care time: The patient presented to the Emergency Department on the above date and was hospitalized for further evaluation of their emergent condition. - New Patient This patient is new to me today: Yes Date on this admission: 07/20/19 - Critical Care Critical Care patient: No ATTENDING PHYSICIAN STATEMENT I saw and evaluated the patient. I reviewed the resident's note and discussed the case with the resident. I agree with the resident's findings and plan as documented. SUBJECTIVE: OBJECTIVE: ASSESSMENT AND PLAN:
[2019-07-20] MEDS ORDERED: SODIUM CHLORIDE 1,000 ML IV SCH ×2 (16:45→17:19)
[2019-07-20] MEDS ORDERED: ONDANSETRON 4 MG/2 ML VIAL IVPUSH SCH (16:45)
--- NOTE | 2019-07-20 17:18 | PN ---
Teaching Attending Note Name of Resident: Emilia Coburn ATTENDING PHYSICIAN STATEMENT I saw and evaluated the patient. I reviewed the resident's note and discussed the case with the resident. I agree with the resident's findings and plan as documented. SUBJECTIVE: Complains of ongoing abdominal/epigastric pain with nausea/ vomiting. No hematemsis. No fever/chills. OBJECTIVE: Afebrile, Hemodynamically Stable. Last Vital Signs Temp Pulse Resp BP Pulse Ox 98.3 F 77 18 126/81 97 07/20/19 16:45 07/20/19 16:45 07/20/19 16:45 07/20/19 16:45 07/20/19 16:45 HEENT - Atramatic, normocephalic. Heart - S1, S2, RRR Lungs - clear to auscultation Abdomen - soft, epigastric and LUQ tenderness. Bowel Sounds normal. Extremities - no edema, no calf tenderness. Neuro - AAO x 3. CN II - XII intact. Tone/Power normal. Laboratory Results - last 24 hr 07/20/19 07/20/19 07/20/19 13:55 13:55 13:55 WBC 6.6 RBC 5.33 Hgb 16.8 Hct 50.0 H D MCV 93.8 MCH 31.5 MCHC 33.6 RDW 12.2 Plt Count 194 MPV 7.5 Absolute Neuts (auto) 3.9 Neutrophils % 59.4 Lymphocytes % 27.7 D Monocytes % 11.9 H Eosinophils % 0.2 Basophils % 0.8 Nucleated RBC % 0 Sodium 138 Potassium 4.1 Chloride 100 Carbon Dioxide 34 H Anion Gap 4 L BUN 17.6 Creatinine 1.2 Est GFR (CKD-EPI)AfAm 94.80 Est GFR (CKD-EPI)NonAf 81.80 Random Glucose 92 Calcium 9.3 Phosphorus Magnesium Total Bilirubin 0.9 AST 23 ALT 31 Alkaline Phosphatase 63 Total Protein 7.6 Albumin 4.0 Lipase 1234 H Urine Color Urine Appearance Urine pH Ur Specific [place] Urine Protein Urine Glucose (UA) Urine Ketones Urine Blood Urine Nitrite Urine Bilirubin Urine Urobilinogen Ur Leukocyte Esterase 07/20/19 07/20/19 13:55 14:00 WBC RBC Hgb Hct MCV MCH MCHC RDW Plt Count MPV Absolute Neuts (auto) Neutrophils % Lymphocytes % Monocytes % Eosinophils % Basophils % Nucleated RBC % Sodium Potassium Chloride Carbon Dioxide Anion Gap BUN Creatinine Est GFR (CKD-EPI)AfAm Est GFR (CKD-EPI)NonAf Random Glucose Calcium Phosphorus 3.2 Magnesium 2.2 Total Bilirubin AST ALT Alkaline Phosphatase Total Protein Albumin Lipase Urine Color Yellow Urine Appearance Clear Urine pH 5.5 Ur Specific [place] 1.030 Urine Protein Trace Urine Glucose (UA) Negative Urine Ketones Trace H Urine Blood Negative Urine Nitrite Negative Urine Bilirubin Negative Urine Urobilinogen 1.0 Ur Leukocyte Esterase Negative Current Medications Generic Name Dose Route Start Last Admin Trade Name Freq PRN Reason Stop Dose Admin Heparin Sodium (Porcine) 5,000 unit 07/20/19 22:00 Heparin - SQ TID PEPPER Sodium Chloride 1,000 mls @ 150 mls/hr 07/20/19 16:45 Normal Saline - IV ASDIR PEPPER Morphine Sulfate 1 mg 07/20/19 16:30 Morphine Sulfate IVPUSH Q6H PRN PAIN SCALE 4-6 Ondansetron HCl 4 mg 07/20/19 16:45 Zofran Injection IVPUSH Q8H [facility] Home Medications Medication Instructions Recorded NK [No Known Home Medication] 07/20/19 ASSESSMENT AND PLAN: 28 year old male with childhood febrile seizures, daily marijuana use, recently admitted for left sided headache and facial pain with associated nausea and vomiting, now re-presents with persistent nausea and vomiting with 3-4 day history of associated abdominal pain 1. Acute Pancreatitis, possible cyclic vomiting syndrome sec to marijuana use. Elevated Lipase (1234), epigastric pain, nausea, vomiting Recent TG level 153. Denies alcohol use. Afebrile, Hemodynamically Stable WBC wnl. NPO/IV Fluids/Morphine PRN/Zofran PRN. CT Abdomen pending. 2. Headache, facial pain suspicious for Trigeminal Neuralgia Recently admitted for same - CT Head/MRI Brain negative Seen last week by Dr. Desir. will re-consult for initiation of therapy ? carbamazepine or neurontin +/- steroid taper for trigeminal neuralgia. DVT Px - Lovenox SQ
[2019-07-20] MEDS: ENOXAPARIN NA (PORCINE) 40 MG/0.4 ML DISP.SYRIN SQ SCH (20:36)
[2019-07-20] MEDS ORDERED: HEPARIN NA (PORCINE) 5,000 UNITS/ML 1ML VIAL SQ SCH (22:00)
[2019-07-21 00:25] LABS: COCAINE, UR NEGATIVE ng/ml (CUTOFF=300); METHADONE, UR NEGATIVE ng/ml (CUTOFF=300); OPIATES, URI NEGATIVE ng/ml (CUTOFF=300); PHENCYCLIDINE,URINE NEGATIVE ng/ml (CUTOFF=25); URINE AMPHETAMINES NEGATIVE ng/ml (CUTOFF=500); URINE BARBITURATES NEGATIVE ng/ml (CUTOFF=200); URINE BENZODIAZEPINES NEGATIVE ng/ml (CUTOFF=200)
[2019-07-21] MEDS: ONDANSETRON 4 MG/2 ML VIAL IVPUSH SCH ×3 (02:00→11:46)
[2019-07-21] MEDS: MORPHINE SULFATE 2 MG/ML VIAL IVPUSH PRN ×2 (05:39→11:57)
[2019-07-21 09:10] LABS: EOS % 0.5 % (0-4.5); HEMOGLOBIN 12.4 GM/dL (11.7-16.9); LYMPH % 42.6 % (8-40); MCH 31.5 pg (25.7-33.7); MCHC 33.5 g/dl (32.0-35.9); MEAN CELL VOLUME 93.8 fl (80-96); MEAN PLT VOLUME 8.1 fl (7.5-11.1); MONO % 10.8 % (3.8-10.2); NEUT % 45.1 % (42.8-82.8); PLATELET COUNT 138 K/MM3 (134-434); RBC 3.95 M/mm3 (4.00-5.60); RDW 12.2 % (11.9-15.9); WHITE BLOOD COUNT 4.9 K/mm3 (4.0-10.0)
[2019-07-21 09:11] VITALS: BP 141/89; PULSE 59; TEMP 98
--- NOTE | 2019-07-21 09:28 | CONSULT ---
Consult - text type - Consultation Consultation Note: Neurology CHIEF COMPLAINT: Abd pain and vomiting PCP: Dr. Zavala HISTORY OF PRESENT ILLNESS: Mr. Wu is a 28 year old male with PMH of febrile seizures as child who presents with 4 days of vomiting and epigastric abdominal pain. Pain came on suddenly, is sharp, constant, and radiates to the left. He has vomited around 4 times a day. Vomit is NBNB and not associated with food intake. He has been able to tolerate some food. He complains of associated chills but denies any fevers or diarrhea. No urinary symptoms. No sick contacts. No hx of STI. Pt had similar symptoms 5 years ago, which he was admitted for. He does not recall what he was diagnosed with but states that the hospital treated him with fluids and medications and he got better. Patient Recently seen by me on previous admission a few days ago. He completed MRI of the brain which I reviewed and discussed with him and was negative. He follows with Dr. Lydia yangnd is scheduled to have MRI of the cervical spine. In the meantime, he continues to describe left facial discomfortbut also including the left parietal and left cervical region. Unusual for trigeminal neuralgia to include parietal and cervical areas but discussed with him trial of medication that may provide some benefit and he was in agreement. We'll start him on carbamazepine 100 mg twice a day in hopes that this will provide adequate relief. Recent Travel: denies PAST MEDICAL HISTORY: Febrile seizures (last seizure age 9) PAST SURGICAL HISTORY: Denies Social History: Smokin cig/day Alcohol: denies Drugs: marijuana daily Family: HTN Allergies Penicillins Allergy (Verified 07/20/19 13:18) HOME MEDICATIONS: Home Medications Medication Instructions Recorded NK [No Known Home Medication] 07/20/19 REVIEW OF SYSTEMS CONSTITUTIONAL: Absent: fever, chills, diaphoresis, generalized weakness, malaise, loss of appetite, weight change HEENT: Absent: rhinorrhea, nasal congestion, throat pain, throat swelling, difficulty swallowing, mouth swelling, ear pain, eye pain, visual changes CARDIOVASCULAR: Absent: chest pain, syncope, palpitations, irregular heart rate, lightheadedness , peripheral edema RESPIRATORY: Absent: cough, shortness of breath, dyspnea with exertion, orthopnea, wheezing, stridor, hemoptysis GASTROINTESTINAL: abdominal pain, nausea, vomiting, Absent: diarrhea, constipation, melena, hematochezia GENITOURINARY: Absent: dysuria, frequency, urgency, hesitancy, hematuria, flank pain, genital pain MUSCULOSKELETAL: Absent: myalgia, arthralgia, joint swelling, back pain, neck pain SKIN: Absent: rash, itching, pallor HEMATOLOGIC/IMMUNOLOGIC: Absent: easy bleeding, easy bruising, lymphadenopathy, frequent infections ENDOCRINE: Absent: unexplained weight gain, unexplained weight loss, heat intolerance, cold intolerance NEUROLOGIC: Absent: headache, focal weakness or paresthesias, dizziness, unsteady gait, seizure, mental status changes, bladder or bowel incontinence PSYCHIATRIC: Absent: anxiety, depression, suicidal or homicidal ideation, hallucinations. PHYSICAL EXAMINATION Vital Signs Period Temp Pulse Resp BP Sys/Renee Pulse Ox Last 24 Hr 97.9 F-98.4 F 59-77 17-18 110-141/70-89 97-100 GENERAL: Awake, alert, and fully oriented, in no acute distress. HEAD: Normal with no signs of trauma. EYES: Pupils equal, round and reactive to light, extraocular movements intact, sclera anicteric, conjunctiva clear. No lid lag. EARS, NOSE, THROAT: Ears normal, nares patent, oropharynx clear without exudates. Moist mucous membranes. NECK: Normal range of motion, supple without lymphadenopathy, JVD, or masses. LUNGS: Breath sounds equal, clear to auscultation bilaterally. No wheezes, and no crackles. No accessory muscle use. HEART: Regular rate and rhythm, normal S1 and S2 without murmur, rub or gallop. ABDOMEN: Epigastric tenderness, mild rebound tenderness and guarding. Normoactive bowel sounds. Soft, nondistended. No masses. Negative dallas's sign. L CVA tenderness. MUSCULOSKELETAL: Normal range of motion at all joints. No bony deformities or tenderness. No CVA tenderness. UPPER EXTREMITIES: 2+ pulses, warm, well-perfused. No cyanosis. No clubbing. No peripheral edema. LOWER EXTREMITIES: 2+ pulses, warm, well-perfused. No calf tenderness. No peripheral edema. NEUROLOGICAL: Cranial nerves II-XII intact. Normal speech. Moves all extremities equally, sensory intact, finger to nose normal PSYCHIATRIC: Cooperative. Good eye contact. Appropriate mood and affect. SKIN: Warm, dry, normal turgor, no rashes or lesions noted, normal capillary refill. CBCD WBC 6.6 K/mm3 (4.0-10.0) 07/20/19 13:55 RBC 5.33 M/mm3 (4.00-5.60) 07/20/19 13:55 Hgb 16.8 GM/dL (11.7-16.9) 07/20/19 13:55 Hct 50.0 % (35.4-49) H D 07/20/19 13:55 MCV 93.8 fl (80-96) 07/20/19 13:55 MCHC 33.6 g/dl (32.0-35.9) 07/20/19 13:55 RDW 12.2 % (11.9-15.9) 07/20/19 13:55 Plt Count 194 K/MM3 (134-434) 07/20/19 13:55 MPV 7.5 fl (7.5-11.1) 07/20/19 13:55 CMP Sodium 138 mmol/L (136-145) 07/20/19 13:55 Potassium 4.1 mmol/L (3.5-5.1) 07/20/19 13:55 Chloride 100 mmol/L (98-107) 07/20/19 13:55 Carbon Dioxide 34 mmol/L (21-32) H 07/20/19 13:55 Anion Gap 4 MMOL/L (8-16) L 07/20/19 13:55 BUN 17.6 mg/dL (7-18) 07/20/19 13:55 Creatinine 1.2 mg/dL (0.55-1.3) 07/20/19 13:55 Random Glucose 92 mg/dL (74-106) 07/20/19 13:55 Calcium 9.3 mg/dL (8.5-10.1) 07/20/19 13:55 Total Bilirubin 0.9 mg/dL (0.2-1) 07/20/19 13:55 AST 23 U/L (15-37) 07/20/19 13:55 ALT 31 U/L (13-61) 07/20/19 13:55 Alkaline Phosphatase 63 U/L (45-117) 07/20/19 13:55 Total Protein 7.6 g/dl (6.4-8.2) 07/20/19 13:55 Albumin 4.0 g/dl (3.4-5.0) 07/20/19 13:55 ASSESSMENT/PLAN: Mr. Wu is a 28 year old male with PMH of febrile seizures as child who presents with 4 days of vomiting and epigastric abdominal pain. Pain came on suddenly, is sharp, constant, and radiates to the left. He has vomited around 4 times a day. Vomit is NBNB and not associated with food intake. He has been able to tolerate some food. He complains of associated chills but denies any fevers or diarrhea. No urinary symptoms. No sick contacts. No hx of STI. Pt had similar symptoms 5 years ago, which he was admitted for. He does not recall what he was diagnosed with but states that the hospital treated him with fluids and medications and he got better. Patient Recently seen by me on previous admission a few days ago. He completed MRI of the brain which I reviewed and discussed with him and was negative. He follows with Dr. Lydia yangnd is scheduled to have MRI of the cervical spine. In the meantime, he continues to describe left facial discomfortbut also including the left parietal and left cervical region. Unusual for trigeminal neuralgia to include parietal and cervical areas but discussed with him trial of medication that may provide some benefit and he was in agreement. We'll start him on carbamazepine 100 mg twice a day in hopes that this will provide adequate relief. Continue Optimization of emesis, per notes believed to be secondary to marijuana use, being evaluated for pancreatitis per notes. headache symptoms may be secondary to persistent nausea and emesis,, patient also given Zofran,, no objection to this. Maintain adequate hydration, IV fluids if needed. Remote history of febrile seizures, no longer active, does not require antiepileptic medication at this time.
[2019-07-21 09:33] LABS: ALBUMIN 2.6 g/dl (3.4-5.0); BILIRUBIN,TOTAL 0.8 mg/dL (0.2-1); BLOOD UREA NITROGEN 10.7 mg/dL (7-18); CALCIUM 7.5 mg/dL (8.5-10.1); CREATININE 0.8 mg/dL (0.55-1.3); MAGNESIUM 1.7 mg/dL (1.8-2.4); PHOSPHOROUS 2.4 mg/dL (2.5-4.9); POTASSIUM 4.1 mmol/L (3.5-5.1); TOT PROT 5.1 g/dl (6.4-8.2)
[2019-07-21] MEDS ORDERED: SODIUM CHLORIDE 1,000 ML IV SCH (10:20)
[2019-07-21] MEDS ORDERED: MAGNESIUM SULF 50% (8.12 MEQ/2 ML-1 GM VIAL) IVPB ONE (10:21)
[2019-07-21] MEDS ORDERED: SODIUM PHOSPHATE - 15 MM in DEXTROSE 5%-WATER - 250 ML IVPB ONE (11:30)
[2019-07-21] MEDS: ENOXAPARIN NA (PORCINE) 40 MG/0.4 ML DISP.SYRIN SQ SCH (11:45)
[2019-07-21] MEDS ORDERED: PT OWN MED DRAWER 7, Y5N ONE (14:38)
--- NOTE | 2019-07-21 16:12 | PN ---
Teaching Attending Note Name of Resident: Emilia Coburn ATTENDING PHYSICIAN STATEMENT I saw and evaluated the patient. I reviewed the resident's note and discussed the case with the resident. I agree with the resident's findings and plan as documented. SUBJECTIVE: Complains of hunger. Admits to some residual ongoing abdominal/ epigastric pain. No further nausea/vomiting. No hematemsis. No fever/chills. Wants to eat. OBJECTIVE: Afebrile, Hemodynamically Stable. Last Vital Signs Temp Pulse Resp BP Pulse Ox 98 F 59 L 18 141/89 100 07/21/19 09:10 07/21/19 09:10 07/21/19 09:10 07/21/19 09:10 07/21/19 09:00 Heart - S1, S2, RRR Lungs - clear to auscultation Abdomen - soft, some epigastric and LUQ tenderness. Bowel Sounds normal. Extremities - no edema, no calf tenderness. Neuro - AAO x 3. CN II - XII intact. Tone/Power normal. Laboratory Results - last 24 hr 07/20/19 07/21/19 07/21/19 23:50 06:50 06:50 WBC 4.9 RBC 3.95 L Hgb 12.4 Hct 37.0 D MCV 93.8 MCH 31.5 MCHC 33.5 RDW 12.2 Plt Count 138 D MPV 8.1 Absolute Neuts (auto) 2.2 Neutrophils % 45.1 D Lymphocytes % 42.6 H D Monocytes % 10.8 H Eosinophils % 0.5 D Basophils % 1.0 Nucleated RBC % 0 Sodium 140 Potassium 4.1 Chloride 109 H Carbon Dioxide 24 Anion Gap 8 BUN 10.7 Creatinine 0.8 Est GFR (CKD-EPI)AfAm 140.90 Est GFR (CKD-EPI)NonAf 121.57 Random Glucose 69 L Calcium 7.5 L Phosphorus 2.4 L Magnesium 1.7 L Total Bilirubin 0.8 AST 29 ALT 28 Alkaline Phosphatase 46 Total Protein 5.1 L Albumin 2.6 L Lipase 1045 H Opiates Screen Negative Methadone Screen Negative Barbiturate Screen Negative Phencyclidine Screen Negative Ur Amphetamines Screen Negative MDMA (Ecstasy) Screen Negative Benzodiazepines Screen Negative Cocaine Screen Negative U Marijuana (THC) Screen Positive A* Current Medications Generic Name Dose Route Start Last Admin Trade Name Freq PRN Reason Stop Dose Admin Carbamazepine 100 mg 07/21/19 10:00 07/21/19 14:53 Tegretol Xr - PO Not Given BID PEPPER Enoxaparin Sodium 40 mg 07/20/19 17:30 07/21/19 11:45 Lovenox - SQ 40 mg DAILY PEPPER Administration Sodium Chloride 1,000 mls @ 125 mls/hr 07/21/19 10:20 07/21/19 11:46 Normal Saline - IV 125 mls/hr ASDIR PEPPER Administration Morphine Sulfate 1 mg 07/20/19 16:30 07/21/19 11:57 Morphine Sulfate IVPUSH 1 mg Q6H PRN Administration PAIN SCALE 4-6 Ondansetron HCl 4 mg 07/20/19 02:00 07/21/19 11:46 Zofran Injection IVPUSH 4 mg Q8H PEPPER Administration Home Medications Medication Instructions Recorded Carbamazepine Xr [Tegretol XR -] 100 mg PO BID #60 tab.er.12h 07/21/19 ASSESSMENT AND PLAN: 28 year old male with childhood febrile seizures, daily marijuana use, recently admitted for left sided headache and facial pain with associated nausea and vomiting, now re-presents with persistent nausea and vomiting with 3-4 day history of associated abdominal pain 1. Cyclic vomiting syndrome sec to marijuana use. CT A/P - pancreatic tail cyst. No evidence of intra-abdominal pathology or pancreatitis. Lipase trending down, epigastric pain resolving, nausea/vomiting resolved. Recent TG level 153. Denies alcohol use. Afebrile, Hemodynamically Stable WBC wnl. Trial of diet. Advance as tolerated. Can be discharged if tolerates diet. Advised to stop MJ intake. 2. Headache, facial pain suspicious for Trigeminal Neuralgia Recently admitted for same - CT Head/MRI Brain negative Seen again by Dr. Desir - recommend trial of Carbamazepine. DVT Px - Lovenox SQ
--- NOTE | 2019-07-21 16:45 | DS ---
Physical Exam: SUBJECTIVE: Patient seen and examined. No acute events overnight. Pt denies vomiting. Endorses mild epigastric pain. OBJECTIVE: Vital Signs Period Temp Pulse Resp BP Sys/Renee Pulse Ox Last 24 Hr 97.9 F-98.3 F 59-77 18-18 126-141/78-89 97-100 PHYSICAL EXAM GENERAL: Awake, alert, and fully oriented, in no acute distress. HEAD: Normal with no signs of trauma. EYES: Pupils equal, round and reactive to light, extraocular movements intact, sclera anicteric, conjunctiva clear. No lid lag. EARS, NOSE, THROAT: Ears normal, nares patent, oropharynx clear without exudates. Moist mucous membranes. NECK: Normal range of motion, supple without lymphadenopathy, JVD, or masses. LUNGS: Breath sounds equal, clear to auscultation bilaterally. No wheezes, and no crackles. No accessory muscle use. HEART: Regular rate and rhythm, normal S1 and S2 without murmur, rub or gallop. ABDOMEN: Epigastric tenderness, mild rebound tenderness and guarding. Normoactive bowel sounds. Soft, nondistended. No masses. Negative dallas's sign. L CVA tenderness. MUSCULOSKELETAL: Normal range of motion at all joints. No bony deformities or tenderness. No CVA tenderness. UPPER EXTREMITIES: 2+ pulses, warm, well-perfused. No cyanosis. No clubbing. No peripheral edema. LOWER EXTREMITIES: 2+ pulses, warm, well-perfused. No calf tenderness. No peripheral edema. NEUROLOGICAL: Cranial nerves II-XII intact. Normal speech. Normal gait. PSYCHIATRIC: Cooperative. Good eye contact. Appropriate mood and affect. SKIN: Warm, dry, normal turgor, no rashes or lesions noted, normal capillary refill. LABS Laboratory Results - last 24 hr CBC, BMP 07/21/19 06:50 07/21/19 06:50 HOSPITAL COURSE: Date of Admission:07/20/19 Mr. Wu is a 28 year old male with PMH of febrile seizures as child who presents with 4 days of vomiting and epigastric abdominal pain. He was afebrile , with no leukocytosis, but found to have an elevated lipase. A CT of the abdomen showed no acute intra-abdominal pathology. Pt was treated with IVF and zofran and kept NPO. His diet was slowly advanced, which he tolerated well. Pt has history of frequent marijuana use. He was counseled about cyclical vomiting syndrome 2/2 marijuana use. Pt was also recently admitted for occipital headaches and facial numbness. Neurology was consulted (Dr. Desir) and recommended trial medication with Carbamezapine for trigeminal neuralgia. He will follow up as outpatient. CTAP: Pancreatic tail cyst without evidence of acute or chronic pancreatitis. No acute pathology. Date of Discharge: 07/21/19 Minutes to complete discharge: 45 Discharge Summary Problems reviewed: Yes Reason For Visit: PANCREATITIS Current Active Problems Abdominal pain (Acute) Vomiting (Acute) Condition: Good - Instructions Diet, Activity, Other Instructions: You were admitted to the hospital for vomiting and abdominal pain. A CAT scan of your abdomen was done and did not show any signs of acute disease. There was a small cyst found on your pancreas. Please follow up with a GI doctor for further evaluation. A neurologist, Dr. Desir, saw you for your headaches and facial discomfort. He recommends a medication, Carbamazepine, to relieve these symptoms and to follow up with him as an outpatient. See instructions below. Medications: - Take Carbamezapine 100mg twice a day (once in the morning, once in the evening) Follow up: - Please follow up with your neurologist, Dr. Desir, in one week to monitor your headaches. - You are scheduled to receive an MRI of your cervical spine on July 26. - Please follow up with a GI doctor in 1-2 weeks. We provided you with a referral to see Dr. Escoto. - Please follow up with your primary care provider in one week. Additional Recommendations: - As discussed, your ongoing symptoms may be due to marijuana use. We encourage you to avoid using marijuana as it may be causing increased nausea, vomiting, and abdominal pain. Return to the emergency department if you experience increased abdominal pain, vomiting, fevers, chills, worsening headache. Referrals: Donnie Escoto MD [Staff Physician] - Alberto Desir MD [Staff Physician] - Sinai Messina MD [Primary Care Provider] - Disposition: HOME - Home Medications Comprehensive Discharge Medication List: Ambulatory Orders Carbamazepine Xr [Tegretol XR -] 100 mg PO BID #60 tab.er.12h 07/21/19 This patient is new to me today: No Emergency Visit: No Critical Care patient: No - Discharge Referral Referred to [facility] No ATTENDING PHYSICIAN STATEMENT I saw and evaluated the patient. I reviewed the resident's note and discussed the case with the resident. I agree with the resident's findings and plan as documented. SUBJECTIVE: OBJECTIVE: ASSESSMENT AND PLAN:
== END 2019-07-21 18:05 | disposition home or self-care (01) | DRG 776 ==
LOC: JER 13:10 → JERBED 15:09 → J6S 19:06
DX: F12.188 Cannabis abuse with other cannabis-induced disorder (principal); R11.15 Cyclical vomiting syndrome unrelated to migraine; R10.9 Unspecified abdominal pain; R74.8 Abnormal levels of other serum enzymes; R11.2 Nausea with vomiting, unspecified; G40.909 Epilepsy, unspecified, not intractable, without status epilepticus; R20.0 Anesthesia of skin; G50.0 Trigeminal neuralgia; F17.210 Nicotine dependence, cigarettes, uncomplicated; K86.2 Cyst of pancreas; E87.6 Hypokalemia; E83.39 Other disorders of phosphorus metabolism
CPT/HCPCS: 36415; 74177-TC; 80053; 80307; 81003; 83690; 83735; 84100; 85025; 87086; 99285-25; J7030

== ENCOUNTER 2024-01-19 09:35 | Emergency (ER) | payer SELFPAY ==
[2024-01-19 09:47] VITALS: BP 121/83; PULSE 84; RESP 18; TEMP 97.8; BMI 21.4
[2024-01-19] MEDS ORDERED: ACETAMINOPHEN INJECTION 100 ML IVPB ONE (10:55)
[2024-01-19] MEDS ORDERED: METOCLOPRAMIDE HCL INJECTION 10 MG/2 ML VIAL ONE (10:55)
[2024-01-19] MEDS: ACETAMINOPHEN 1000 MG/100 ML BAG IVPB ONE (11:03)
[2024-01-19] MEDS: LACTATED RINGERS SOLUTION 1000 ML INFUS.BAG IV ONE (11:04)
[2024-01-19] MEDS: METOCLOPRAMIDE HCL INJECTION 10 MG/2 ML VIAL IVPUSH ONE (11:04)
[2024-01-19 11:08] LABS: BASO % 0.5 % (0-2.0); EOS % 0.2 % (0-4.5); HEMATOCRIT 43.4 % (35.4-49); HEMOGLOBIN 14.3 GM/dL (11.7-16.9); LYMPH % 22.1 % (8-40); MCH 30.8 pg (25.7-33.7); MEAN CELL VOLUME 93.3 fl (80-96); MEAN PLT VOLUME 7.6 fl (7.5-11.1); NEUT % 70.2 % (42.8-82.8); PLATELET COUNT 219 10^3/uL (134-434); RBC 4.65 M/mm3 (4.00-5.60); RDW 13.1 % (11.9-15.9); WHITE BLOOD COUNT 10.4 K/mm3 (4.0-10.0)
[2024-01-19 11:14] LABS: PROTHROMBIN TIME (PATIENT) 11.3 SEC (9.7-13.0)
[2024-01-19 11:17] LABS: ACTIVATED PTT 33.8 SECONDS (25.2-36.5)
[2024-01-19 11:28] LABS: POTASSIUM 4.2 mmol/L (3.5-5.1)
[2024-01-19 11:31] LABS: ALBUMIN 3.9 g/dl (3.4-5.0); BLOOD UREA NITROGEN 11.2 mg/dL (7-18); CALCIUM 9.5 mg/dL (8.5-10.1)
[2024-01-19 11:35] LABS: CREATININE 0.9 mg/dL (0.55-1.3)
== END 2024-01-19 13:02 | disposition home or self-care (01) ==
LOC: JER 09:35
PROC: 3E033NZ Introduction of Analgesics, Hypnotics, Sedatives into Peripheral Vein, Percutaneous Approach (ICD-10-PCS; principal; 2024-01-19)
PROC: 3E033GC Introduction of Other Therapeutic Substance into Peripheral Vein, Percutaneous Approach (ICD-10-PCS; 2024-01-19)
DX: R55 Syncope and collapse (principal); R51.9 Headache, unspecified; S06.0X9A Concussion with loss of consciousness of unspecified duration, initial encounter; W19.XXXA Unspecified fall, initial encounter
CPT/HCPCS: 36415; 70450-TC; 72125-TC; 73130-TC-RT-FY; 80053; 83735; 84484; 85025; 85610; 85730; 86850; 86900; 86901; 93005; 93010; 99285-25; J0131